=== PATIENT | female | born 1990 | race Caucasian/White ===

== ENCOUNTER 2016-07-31 13:37 | Emergency (ER) | payer SELFPAY ==
[~2016-07-31] VITALS: Ht 160 cm; Wt 55.3 kg
[~2016-07-31 13:37] MED LIST: IBUPROFEN800 MG PO; PRENATAL TABLE1 EAC3 PO
[2016-07-31 14:55] LABS: HEMATOCRIT 39.4 % (36.0-46.0); MCH 30.2 PG (29.0-34.0); MCHC 34.8 G/DL (30.0-36.0); MEAN PLAT.VOLUME 9.1 uM^3 (9.5-12.4); PLATELET COUNT 303 K/uL (156-360); RBC DIS.WIDTH-CV 13.3 % (11.8-14.6); RBC DIS.WIDTH-SD 41.8 % (39-53); RED BLOOD COUNT 4.53 M/uL (3.80-5.20); WHITE BLOOD COUNT 7.9 K/uL (4.1-10.2)
[2016-07-31 15:11] LABS: CHLORIDE 106 mEq/L (99-109); POTASSIUM 3.9 mEq/L (3.7-5.4); SODIUM 139 mEq/L (136-147)
[2016-07-31 15:13] LABS: GLUCOSE 83 mg/dL (70-99)
[2016-07-31 15:14] LABS: ANION GAP 6 MEQ/L (2-14)
[2016-07-31 15:17] LABS: GFR ESTIMATE (CALCULATED) > 59 mL/min/
[2016-07-31 15:18] LABS: UREA NITROGEN (BUN) 9 mg/dL (9-23)
[2016-07-31 15:18] LABS: ADD MIUA? YES; BILIRUBIN NEGATIVE; BLOOD NEGATIVE; COLOR STRAW ((YELLOW)); GLUCOSE (STRIP) NEGATIVE; KETONES NEGATIVE; LEUKOCYTES TRACE; NITRITE NEGATIVE; PROTEIN (STRIP) NEGATIVE; SPECIFIC GRAVITY 1.008 (1.000-1.030); UROBILINOGEN 0.2 MG/DL (0.2-1.0)
[2016-07-31 15:20] LABS: BACTERIA NONE SEEN /HPF; EPITHELIAL CELLS 1+ /HPF; MUCUS TRACE /LPF; RED BLOOD CELLS 0-5 /HPF (0-5); UCUL ADDED? NO; WHITE BLOOD CELLS 0-5 /HPF (0-5)
[2016-07-31 15:26] LABS: QUANTITATIVE HCG < 4.0 MIU/ML
[2016-07-31] MEDS ORDERED: PERCOCET 5/31 TABLET PO (16:25)
[2016-07-31 18:30] VITALS: BP 109/69
== END 2016-07-31 18:31 | disposition home or self-care (01) ==
LOC: EME 13:37
DX: R10.9 Unspecified abdominal pain (principal); M54.5 Low back pain
CPT/HCPCS: 74176; 80048; 81003; 84702; 85027; 99281; 99284

== ENCOUNTER 2016-08-07 13:40 | Emergency (ER) | payer SELFPAY ==
[~2016-08-07] VITALS: Ht 165.1 cm; Wt 53.7 kg
[~2016-08-07 13:40] MED LIST changes: +PERCOCET 5/31 TABLET PO
[2016-08-07 15:18] LABS: EOSINOPHIL (%) 2.5 % (0-5); EOSINOPHIL COUNT 0.2 K/uL (0-0.3); HEMATOCRIT 39.3 % (36.0-46.0); IMMATURE GRANULOCYTE (%) 0.1 % (0.0-0.7); IMMATURE GRANULOCYTE COUNT 0.1 K/uL; LYMPHOCYTE COUNT 2.6 K/uL (1.0-2.8); MCH 29.5 PG (29.0-34.0); MCHC 33.8 G/DL (30.0-36.0); MCV 87.1 FL (83-99); MEAN PLAT.VOLUME 9.4 uM^3 (9.5-12.4); MONOCYTE (%) 4.1 % (3-12); MONOCYTE COUNT 0.3 K/uL (0-0.8); NEUTROPHIL COUNT 3.8 K/uL (1.8-6.4); PLATELET COUNT 293 K/uL (156-360); RBC DIS.WIDTH-CV 12.9 % (11.8-14.6); RBC DIS.WIDTH-SD 40.4 % (39-53); RED BLOOD COUNT 4.51 M/uL (3.80-5.20); WHITE BLOOD COUNT 6.9 K/uL (4.1-10.2)
[2016-08-07 15:29] LABS: CHLORIDE 105 mEq/L (99-109); POTASSIUM 4.2 mEq/L (3.7-5.4); SODIUM 140 mEq/L (136-147)
[2016-08-07 15:31] LABS: GLUCOSE 85 mg/dL (70-99)
[2016-08-07 15:32] LABS: ADD MIUA? YES; BILIRUBIN NEGATIVE; BLOOD NEGATIVE; COLOR YELLOW ((YELLOW)); GLUCOSE (STRIP) NEGATIVE; KETONES NEGATIVE; LEUKOCYTES SMALL; NITRITE NEGATIVE; PROTEIN (STRIP) NEGATIVE; SPECIFIC GRAVITY 1.027 (1.000-1.030)
[2016-08-07 15:33] LABS: ANION GAP 9 MEQ/L (2-14)
[2016-08-07 15:35] LABS: GFR ESTIMATE (CALCULATED) > 59 mL/min/
[2016-08-07 15:36] LABS: UREA NITROGEN (BUN) 14 mg/dL (9-23)
[2016-08-07 15:39] LABS: QUANTITATIVE HCG < 4.0 MIU/ML
[2016-08-07 16:11] LABS: BACTERIA NONE SEEN /HPF; EPITHELIAL CELLS RARE /HPF; MUCUS 2+ /LPF; RED BLOOD CELLS NONE SEEN /HPF (0-5); UCUL ADDED? NO; WHITE BLOOD CELLS 0-5 /HPF (0-5)
[2016-08-07] MEDS ORDERED: TRAMADOL HCL50 MG PO (18:12)
[2016-08-07 18:51] VITALS: BP 101/58
== END 2016-08-07 18:52 | disposition home or self-care (01) ==
LOC: EME 13:40
PROVIDERS: Physician Assistant
DX: M54.5 Low back pain (principal)
CPT/HCPCS: 80048; 81003; 84702; 85025; 99281; 99284

== ENCOUNTER 2017-10-20 15:47 | Emergency (ER) | payer SELFPAY ==
[~2017-10-20] VITALS: Ht 160 cm; Wt 51.5 kg
[~2017-10-20 15:47] MED LIST changes: +TRAMADOL HCL50 MG PO
[2017-10-20 15:53] VITALS: BP 117/60
[2017-10-20] MEDS ORDERED: AMOXICILLIN875 MG PO (16:39)
[2017-10-20] MEDS ORDERED: MOTRIN600 MG PO (16:40)
== END 2017-10-20 16:51 | disposition home or self-care (01) ==
LOC: EME 15:47 → RME 15:47
DX: J02.0 Streptococcal pharyngitis (principal); F17.200 Nicotine dependence, unspecified, uncomplicated
CPT/HCPCS: 87651 90; 99281; 99283

== ENCOUNTER 2018-01-28 14:16 | Emergency (ER) | payer SELFPAY ==
[~2018-01-28] VITALS: Ht 160 cm; Wt 55.8 kg
[~2018-01-28 14:16] MED LIST changes: +AMOXICILLIN875 MG PO; +MOTRIN600 MG PO
[2018-01-28 15:10] LABS: HEMOGLOBIN 13.5 G/DL (11.9-15.5); MCH 31.4 PG (29.0-34.0); MCHC 33.8 G/DL (30.0-36.0); PLATELET COUNT 297 K/uL (156-360); RBC DIS.WIDTH-CV 12.9 % (11.8-14.6); RBC DIS.WIDTH-SD 43.9 % (39-53); WHITE BLOOD COUNT 9.9 K/uL (4.1-10.2)
[2018-01-28 15:22] LABS: APPEARANCE SL.HAZY ((CLEAR)); BILIRUBIN NEGATIVE; BLOOD MODERATE; COLOR YELLOW ((YELLOW)); GLUCOSE (STRIP) NEGATIVE; KETONES NEGATIVE; LEUKOCYTES MODERATE; NITRITE NEGATIVE; PROTEIN (STRIP) NEGATIVE; SPECIFIC GRAVITY 1.024 (1.000-1.030)
[2018-01-28 15:24] LABS: ALBUMIN 3.9 g/dL (3.2-4.8); CHLORIDE 101 mEq/L (99-109); POTASSIUM 3.9 mEq/L (3.7-5.4); SODIUM 137 mEq/L (136-147)
[2018-01-28 15:26] LABS: GLUCOSE 99 mg/dL (70-99); TOTAL PROTEIN 7.8 g/dL (6.4-8.3)
[2018-01-28 15:26] LABS: BACTERIA RARE /HPF; EPITHELIAL CELLS 2+ /HPF; MUCUS TRACE /LPF; RED BLOOD CELLS 0-5 /HPF (0-5); UCUL ADDED? YES
[2018-01-28 15:28] LABS: TOTAL BILIRUBIN 1.1 mg/dL (0.0-1.0)
[2018-01-28 15:30] LABS: ALKALINE PHOSPHATASE 108 IU/L (3-129); CREATININE 0.9 mg/dL (0.6-1.3); GFR ESTIMATE (CALCULATED) > 59 mL/min/
[2018-01-28 15:31] LABS: UREA NITROGEN (BUN) 13 mg/dL (9-23)
[2018-01-28 15:32] LABS: AST (GOT) 19 IU/L (2-34)
[2018-01-28 15:33] LABS: ALT (GPT) 11 IU/L (3-49); LIPASE 12 U/L (1.0-51.0)
[2018-01-28 15:39] LABS: QUANTITATIVE HCG < 4.0 MIU/ML
[2018-01-28 16:47] VITALS: BP 103/66
== END 2018-01-28 17:03 | disposition home or self-care (01) ==
LOC: EME 14:16
PROVIDERS: Nurse Practitioner Family
DX: R10.11 Right upper quadrant pain (principal); R10.31 Right lower quadrant pain; M54.5 Low back pain; F17.200 Nicotine dependence, unspecified, uncomplicated
CPT/HCPCS: 74177; 76705; 80053; 81003; 83690; 84702; 85027; 87077; 87086; 87186; 99281; 99284; J7030